=== PATIENT | male | born 1950 | race Caucasian/White ===

== ENCOUNTER 2020-05-05 16:02 | Emergency (ER) | payer MEDICARE ==
[2020-05-05] MEDS ORDERED: MORPHINE 2 MG/ML CARPUJECT IVP STA ×3 (16:30→18:14)
[2020-05-05] MEDS ORDERED: ONDANSETRON 4 MG/2 ML VIAL IVP STA (16:30)
[2020-05-05] MEDS ORDERED: SODIUM CHLORIDE 0.9% 1,000 ML IV STA (16:30)
--- NOTE | 2020-05-05 16:36 | ED Physician Documentation ---
History of Present Illness - Stated complaint Stated Complaint: HEADACHE/BODYACHES - Chief complaint Chief Complaint: General - History obtained from History obtained from: Patient, Family - Additonal information Additional information: 69-year-old gentleman with remote history of bladder cancer and tobacco use presents with an 8-day illness marked by severe frontal headaches, vomiting and confusion. No fevers or chills. No neck stiffness. He is unable to keep anything down. Also has some joint aches. No sick contacts or recent travel. 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 He does note horizontal diplopia that does not seem to be worse in either direction. Review of Systems Ten Systems: 10 systems reviewed and negative Constitutional: reports: Fatigue. denies: Fever, Chills Nose: denies: Rhinorrhea / runny nose, Congestion Throat: denies: Sore throat Cardiac: denies: Chest pain / pressure, Palpitations Respiratory: denies: Dyspnea, Cough GI: reports: Nausea, Vomiting. denies: Abdominal Pain PD PAST MEDICAL HISTORY - Past Medical History Cardiovascular: None Respiratory: None Endocrine/Autoimmune: None GI: None : Benign prostate hypertrophy, Indwelling catheter HEENT: Chronic vision loss Psych: None Musculoskeletal: None Derm: None - Past Surgical History Past Surgical History: No - Present Medications Home Medications: Ambulatory Orders Medication Instructions Recorded Confirmed Tamsulosin [Flomax] 1 tab PO DAILY 11/22/15 02/03/16 Finasteride 5 mg PO DAILY 02/03/16 02/03/16 - Allergies Allergies/Adverse Reactions: Allergies Allergy/AdvReac Type Severity Reaction Status Date / Time No Known Drug Allergies Allergy Verified 05/05/20 16:13 - Social History Does the pt smoke?: Yes Smoking Status: Current every day smoker Does the pt drink ETOH?: Yes Does the pt have substance abuse?: Yes - Immunizations Immunizations are current?: No PD ED PE NORMAL - Vitals Vital signs reviewed: Yes - General General: Alert and oriented X 3, No acute distress - HEENT HEENT: PERRL, EOMI, Other (Very dry mucous membranes; Diplopia not reproducible on exam.) - Neck Neck: No bony TTP - Cardiac Cardiac: RRR, No murmur - Respiratory Respiratory: No respiratory distress, Clear bilaterally - Abdomen Abdomen: Non tender - Back Back: No CVA TTP, No spinal TTP - Derm Derm: No rash - Neuro Neuro: Alert and oriented X 3, No motor deficit, No sensory deficit, Normal speech Eye Opening: Spontaneous Motor: Obeys Commands Verbal: Oriented GCS Score: 15 Results - Vitals Vitals: Vital Signs - 24 hr 05/05/20 16:13 Temperature 36.5 C Heart Rate 107 H Respiratory 16 Rate Blood Pressure 180/100 H O2 Saturation 96 Oxygen O2 Source Room air - Labs Labs: Laboratory Tests 05/05/20 05/05/20 05/05/20 16:50 16:50 17:25 WBC 15.5 H RBC 6.08 Hgb 18.6 H Hct 55.7 H MCV 91.6 MCH 30.6 MCHC 33.4 RDW 11.9 L Plt Count 276 MPV 8.9 Neut # (Auto) 13.4 H Lymph # (Auto) 1.1 L [place] # (Auto) 0.9 Eos # (Auto) 0.0 Baso # (Auto) 0.0 Absolute Nucleated RBC 0.00 Nucleated RBC % 0.0 Sodium 135 Potassium 3.4 L Chloride 92 L Carbon Dioxide 25 Anion Gap 18.0 H BUN 20 Creatinine 0.8 Estimated GFR (MDRD) 96 Glucose 141 H Lactic Acid 1.2 Calcium 8.8 Phosphorus 4.4 Magnesium 2.5 Total Bilirubin 1.2 H AST 24 ALT 68 H Alkaline Phosphatase 69 Total Protein 7.1 Albumin 3.9 Globulin 3.2 Albumin/Globulin Ratio 1.2 Lipase 40 - Rads (name of study) CT Head Radiology: EMP read contemporaneously (Parenchymal hemorrhage in the anterior medial left frontal lobe with vasogenic edema and mass-effect, probable associated focal subdural hematoma. Possibly some associated frontal subarachnoid blood as well. Associated neoplasm is possible) 1v CXR Radiology: EMP read contemporaneously (Possible subcarinal adenopathy, consider chest CT.) PD MEDICAL DECISION MAKING - ED course ED course: 69-year-old gentleman presents with a little over a weeks worth of headache, diplopia, vomiting. He appears very dry. Went over to CT which shows intracranial hemorrhage. High suspicion for metastatic source given he is a longstanding smoker. Given Decadron and followed with a Cardene drip for elevated blood pressures. Spoke with the neurosurgeon in [place], Dr. Isaura Hernandez who agrees with him coming down but defers to an ER to ER transfer for more rapid MRI of the brain with and without contrast and MRA. Accepting physician is Dr. Ke Bosch at [place] and we spoke at 5:36 PM. Patient is stable for transport and cobras were completed. - Critical Care Time(min): 45 Time Includes: Direct patient care, Review records, Reassess patient, Coordinate care, Medical consult Data interpretation: Labs, Pulse ox Departure - Departure Disposition: 02 Transfer Acute Care Hosp Clinical Impression: Intracranial hemorrhage, Abnormal chest x-ray Condition: Critical
[2020-05-05 17:04] LABS: BASOPHILS % (AUTO) 0.3 %; EOSINOPHILS % (AUTO) 0.1 %; HGB - HEMOGLOBIN 18.6 g/dL (14.0-18.0); LYMPHOCYTES # (AUTO) 1.1 10^3/uL (1.5-3.5); LYMPHOCYTES % (AUTO) 7.1 %; MEAN CORPUSCULAR HEMOGLOBIN 30.6 pg (27.0-31.0); MEAN CORPUSCULAR HGB CONC 33.4 g/dL (32.0-36.0); MEAN CORPUSCULAR VOLUME 91.6 fL (80.0-94.0); MEAN PLATELET VOLUME 8.9 fL (7.4-11.4); MONOCYTES # (AUTO) 0.9 10^3/uL (0.0-1.0); MONOCYTES % (AUTO) 5.5 %; NEUTROPHILS # (AUTO) 13.4 10^3/uL (1.5-6.6); NEUTROPHILS % (AUTO) 86.3 %; PLT - PLATELET COUNT 276 10^3/uL (130-450); RED BLOOD COUNT 6.08 10^6/uL (4.70-6.10); RED CELL DISTRIBUTION WIDTH 11.9 % (12.0-15.0); WHITE BLOOD COUNT 15.5 x10^3/uL (4.8-10.8)
[2020-05-05] MEDS ORDERED: DEXAMETHASONE 10 MG/ML VIAL IVP STA (17:16)
[2020-05-05 17:18] LABS: ALBUMIN 3.9 g/dL (3.2-5.5); ALBUMIN/GLOBULIN RATIO 1.2 (1.0-2.2); BILIRUBIN,TOTAL 1.2 mg/dL (0.2-1.0); CALCIUM 8.8 mg/dL (8.5-10.3); CREATININE 0.8 mg/dL (0.6-1.2); MAGNESIUM 2.5 mg/dL (1.7-2.8); PHOSPHORUS 4.4 mg/dL (2.5-4.6); TOTAL PROTEIN 7.1 g/dL (6.7-8.2)
--- NOTE | 2020-05-05 17:24 | CT Report ---
PROCEDURE: HEAD WO INDICATIONS: worst headache of life TECHNIQUE: Noncontrast 4.5 mm thick angled axial sections acquired from the foramen magnum to the vertex. For r adiation dose reduction, the following was used: automated exposure control, adjustment of mA and/or kV according to patient size. COMPARISON: None. FINDINGS: Image quality: Excellent. CSF spaces: Basal cisterns are patent. No extra-axial fluid collections. Ventricles are normal in size and shape. Brain: Large predominantly parenchymal hematoma, anterior medial left frontal lobe measuring approxim ately 3.6 x 1.7 x 5.1 cm. There is associated vasogenic edema. There is probable associated subdural hematoma focally along the anterior falx. There is associated frontal subarachnoid hemorrhage. There is mass effect on the frontal horn of the left lateral ventricle. At the present time there is no imp ending uncal herniation. The suprasellar cistern is patent. There is no midline shift. No other focal areas of acute hemorrhage are identified. Skull and face: Calvarium and visualized facial bones are intact, without suspicious lesions. Sinuses: Visualized sinuses and mastoids are clear. IMPRESSION: Large predominantly parenchymal hematoma in the anterior medial left frontal lobe with v asogenic edema and significant mass effect on the frontal horn of the left lateral ventricle. Probabl e associated focal subdural hematoma. There is some associated frontal subarachnoid hemorrhage. Canno t exclude underlying neoplasm. Differential diagnosis includes hypertensive hemorrhage, amyloid angio alexei, hemorrhagic tumor, and hemorrhagic transformation of anterior cerebral artery territory infarc t. Above discussed with TEJAL TODD at the time of dictation on 05/05/2020 1721 hours PDT. Reviewed by: Domingo Hernandez MD on 05/05/2020 4:23 PM AKDT Approved by: Domingo Hernandez MD on 05/05/2020 4:23 PM AKDT Station ID: [id number]
[2020-05-05] MEDS ORDERED: NICARDIPINE HCL 25 MG in SODIUM CHLORIDE 0.9% 240 ML IV STA (17:30)
--- NOTE | 2020-05-05 17:46 | XRAY Report ---
PROCEDURE: Chest 1 View X-Ray INDICATIONS: ICH, long time smoker TECHNIQUE: One view of the chest was acquired. COMPARISON: 12/23/2015 FINDINGS: Surgical changes and devices: None. Lungs and pleura: No pleural effusions or pneumothorax. Lungs are clear. Mediastinum: Question subcarinal adenopathy. Widening of the superior mediastinum may be secondary to portable semisupine technique. Heart size is normal. Bones and chest wall: No suspicious bony lesions. Overlying soft tissues appear unremarkable. IMPRESSION: Question subcarinal adenopathy. Consider chest CT. Reviewed by: Domingo Hernandez MD on 05/05/2020 4:45 PM [email or web address] Approved by: Domingo Hernandez MD on 05/05/2020 4:45 PM AKDT Station ID: [id number]
[2020-05-05 18:05] VITALS: BP 186/110
== END 2020-05-05 18:44 | disposition short-term general hospital (02) ==
LOC: ED 16:02
DX: I62.9 Nontraumatic intracranial hemorrhage, unspecified (principal); I60.9 Nontraumatic subarachnoid hemorrhage, unspecified; R91.8 Other nonspecific abnormal finding of lung field; R03.0 Elevated blood-pressure reading, without diagnosis of hypertension; F17.200 Nicotine dependence, unspecified, uncomplicated; Z85.51 Personal history of malignant neoplasm of bladder
CPT/HCPCS: 36415; 70450; 71045; 80053; 83605; 83690; 83735; 84100; 85025; 96374; 96375; 96376; 99291

== ENCOUNTER 2020-06-21 09:27 | Outpatient (CLI) | payer MEDICARE ==
--- NOTE | 2020-06-21 10:53 | CT Report ---
PROCEDURE: Low Dose Lung Cancer Screen INDICATIONS: ENCNTR SCREEN FOR MALIGNANT NEOPLASM OF RESPIRATOR TECHNIQUE: Noncontrast low-dose 5 mm thick sections acquired from the pulmonary apices to the posterior costophr enic angles. 7 mm thick coronal and sagittal MIP reformats were then acquired. For radiation dose r eduction, the following was used: automated exposure control, adjustment of mA and/or kV according t o patient size. COMPARISON: None. FINDINGS: Image quality: Excellent. Lungs and pleura: Upper lobe centrilobular emphysema is present. No acute consolidation. Scattered s carring/atelectasis. Diffuse peribronchial cuffing suggestive of nonspecific bronchitis and/or reacti ve airways disease. Coronary artery calcifications are noted. Mediastinum: Heart size is normal. No pericardial effusion. No mediastinal adenopathy by size crit eria. Thoracic aorta and central pulmonary arteries are normal in size. Esophagus is normal in valarie desiree. No hiatal hernia. Bones and chest wall: No suspicious bony lesions. No vertebral body compression fractures. No axil daniela or supraclavicular adenopathy by size criteria. The thyroid is normal in size. Abdomen: Visualized upper abdomen solid organs and bowel loops appear normal in the absence of contr ast. IMPRESSION: No discrete pulmonary nodule identified. Lung-RADS 1. Recommend continued annual screening in 12 nate hs. Upper lobe centrilobular emphysema. Coronary artery disease Diffuse peribronchial cuffing suggestive of nonspecific bronchitis and/or reactive airways disease. Reviewed by: Germán Dickson MD on 06/21/2020 10:51 AM PDT Approved by: Germán Dickson MD on 06/21/2020 10:51 AM PDT Station ID: [id number]
== END 2020-06-21 09:28 | disposition home or self-care (01) ==
LOC: DI 09:27
PROVIDERS: ATTEND Nurse Practitioner Family
DX: Z12.2 Encounter for screening for malignant neoplasm of respiratory organs (principal); J43.2 Centrilobular emphysema; I25.10 Atherosclerotic heart disease of native coronary artery without angina pectoris; R91.8 Other nonspecific abnormal finding of lung field; F17.210 Nicotine dependence, cigarettes, uncomplicated
CPT/HCPCS: G0297 ×2

== ENCOUNTER 2020-06-27 13:27 | Outpatient (CLI) | payer MEDICARE ==
[2020-06-27] MEDS ORDERED: ALBUTEROL 1 PUFF INH STA (15:08)
== END 2020-06-27 13:28 | disposition home or self-care (01) ==
LOC: RT 13:27
PROVIDERS: ATTEND Nurse Practitioner Family
DX: F17.200 Nicotine dependence, unspecified, uncomplicated (principal)
CPT/HCPCS: 94060

== ENCOUNTER 2022-04-09 08:36 | Outpatient (CLI) | payer MEDICARE | END 2022-04-09 08:37 | disposition E | LOC: EMS 08:36 ==